=== PATIENT | female | born 1945 | race Caucasian/White ===

== ENCOUNTER → 2016-07-21 | Outpatient (CLI) | payer OTHER, MEDICARE | LOC: CIMAGING 12:24 | PROVIDERS: ATTEND Internal Medicine | DX: Z12.31 Encounter for screening mammogram for malignant neoplasm of breast (principal) | CPT/HCPCS: G0202 ==

== ENCOUNTER → 2016-07-25 | Outpatient (CLI) | payer OTHER, MEDICARE | LOC: BRMIMAGING 10:58 | PROVIDERS: ATTEND Internal Medicine | DX: Z13.820 Encounter for screening for osteoporosis (principal); M81.0 Age-related osteoporosis without current pathological fracture; Z01.818 Encounter for other preprocedural examination; H02.409 Unspecified ptosis of unspecified eyelid; F31.60 Bipolar disorder, current episode mixed, unspecified | CPT/HCPCS: 77080; G0463 ==

== ENCOUNTER 2018-04-07 14:38 | Emergency (ER) | payer OTHER, MEDICARE ==
--- NOTE | 2018-04-07 15:45 | EDPHY ---
H & P Time Seen by Provider: 04/07/18 15:02 HPI/ROS: This patient describes a mechanical fall when she tripped and landed with right lateral lower rib against a curb. She also sustained an injury to her right 2nd finger at the PIP joint region with mild swelling. The incident occurred within last 24 hr and she reports 8/10 pain to the ribs and similar pain to her finger. The finger pain worsens with flexion extension with no other exacerbating factors. She denies any other injuries associated with this. He has no other associated symptoms. She came in by private vehicle for evaluation. ROS: Constitutional: No fevers or chills. HEENT: No facial injury or other complaints Pulmonary: No cough shortness of breath. No hemoptysis. Musculoskeletal: No neck or back pain GI: No abdominal pain, nausea vomiting Integumentary: No lacerations or abrasions Neuro: No head injury or headache. No focal numbness or tingling 7 point review of symptoms is performed and otherwise negative with exception of pertinent positives and negatives listed in HPI and ROS Smoking Status: Never smoked Physical Exam: General Appearance: Alert, no distress. Eyes: Pupils equal and round no pallor or injection. ENT,-atraumatic Mouth: Mucous membranes moist. Neck: Nontender, full range of motion Respiratory: There are no retractions, lungs are clear to auscultation. Patient's right lower lateral rib tenderness around 1230 per so. She has no crepitance. No subcu air. No increased respiratory effort Cardiovascular: Regular rate and rhythm. Gastrointestinal: Abdomen is soft and nontender, no masses, bowel sounds normal. No right upper quadrant tenderness or organomegaly Neurological: GCS 15 Skin: Warm and dry, no rashes. Musculoskeletal: Neck is supple nontender. Extremities are symmetrical, full range of motion with exception of right 2nd finger Right 2nd finger: Patient has circumferential swelling to the PIP joint region with no malrotation when viewed on end. She has mild limitation of flexion extension due to pain. There is associated tenderness that is moderate Psychiatric: Mood and affect are normal DIFFERENTIAL DIAGNOSIS: After history and physical exam differential diagnosis was considered for finger sprain, finger fracture, rib contusion, rib fracture, pneumothorax, hemothorax Constitutional: Initial Vital Signs Temperature (C) 36.7 C 04/07/18 14:48 Heart Rate 63 04/07/18 14:48 Respiratory Rate 16 12/29/18 14:48 Blood Pressure 149/75 H 04/07/18 14:48 O2 Sat (%) 98 04/07/18 14:48 O2 Delivery Mode Room Air Allergies/Adverse Reactions: morphine Allergy (Verified 04/07/18 14:54) Opioids - Morphine Analogues Allergy (Verified 04/07/18 14:54) Penicillins Allergy (Verified 04/07/18 14:47) Rash ENVIRONMENTAL Allergy (Intermediate, Uncoded 04/07/18 14:47) SNEEZING/RASH/SWOLLEN EYES/ASTHMA Home Medications: Medication Instructions Recorded PARoxetine HCL [Paxil 30mg (*)] 60 mg PO HS 03/31/15 Topiramate [Topamax 25MG (*)] 25 mg PO HS 03/31/15 lamoTRIgine [LamICTAL 100 MG (*)] 150 mg PO HS 03/31/15 IBUPROFEN 03/11/16 Meloxicam 04/07/18 traMADol [Ultram 50 mg (*)] 50 - 100 mg PO Q4 PRN #20 tab 04/07/18 MDM/Departure - MDM Diagnostics: Finger x-rays: Small avulsion fracture to the middle phalanx palmar aspect proximal without significant displacement by my interpretation Rib x-rays chest x-ray: Negative for fracture, pneumothorax or hemothorax by my interpretation ED Course/Re-evaluation: I counseled patient regarding rib injury. I also counseled regarding her finger fracture. She is placed in an [place] low volar splint in partial flexion by our tech with my supervision. Patient is neurovascular intact post splint application. She will follow up with hand specialist for re-evaluation. She understands need to return to the emergency department should she develop dyspnea, hemoptysis, fevers or other concerns. - Depart Disposition: Home, Routine, Self-Care Clinical Impression: RIB INJURY Finger fracture, right Qualifiers: Encounter type: initial encounter Finger: index finger Fracture type: closed Phalanx: middle Fracture alignment: nondisplaced Qualified Code(s): S62.650A - Nondisplaced fracture of middle phalanx of right index finger, initial encounter for closed fracture Condition: Good Instructions: Tramadol (By mouth), Finger Fracture (ED), Rib Fracture (ED) Additional Instructions: Diagnoses: 1. Finger fracture 2. Rib injury Plan: Ice 20 min at a time to 3 times a day [id number] mg per 6 hr as needed for pain Tylenol in addition Tramadol in addition if needed for pain that prevents sleep. No driving, alcohol or work on tramadol. Follow-up with Hand physician listed below-call on Monday to arrange follow-up appointment for this week. Take a deep breath every 10-15 minutes to prevent pneumonia as a complication of rib injury Return emergency department if you developed shortness of breath, coughing blood , fevers or other concerns Prescriptions: traMADol [Ultram 50 mg (*)] 50 - 100 mg PO Q4 PRN #20 tab PRN Reason: breakthrough pain Referrals: Maye Roque MD [Primary Care Provider] - As per Instructions Alireza Herring MD [Medical Doctor] - As per Instructions
[2018-04-07 15:54] VITALS: BP 146/85
== END 2018-04-07 15:52 | disposition home or self-care (01) ==
LOC: CED 14:38
DX: S62.650A Nondisplaced fracture of middle phalanx of right index finger, initial encounter for closed fracture (principal); S29.9XXA Unspecified injury of thorax, initial encounter; W01.0XXA Fall on same level from slipping, tripping and stumbling without subsequent striking against object, initial encounter; Y92.9 Unspecified place or not applicable; Y93.9 Activity, unspecified; Y99.9 Unspecified external cause status
CPT/HCPCS: 71101; 73140; L3925